=== PATIENT | male | born 2000 | race Hispanic/Latino ===

== ENCOUNTER 2019-12-02 03:36 | Emergency (ER) | payer SELFPAY ==
--- NOTE | 2019-12-02 04:11 | Emergency Department Report ---
ED Psych HPI - General Chief Complaint: Psych Stated Complaint: MH EVALUATION Time Seen by Provider: 12/02/19 04:09 Source: patient, police Mode of arrival: Ambulatory - History of Present Illness Initial Comments: Patient is a 19-year-old male that presents emergency room with complaints of needing some help to become an Trav. Patient states he is trying to be a devil and injured the same time. Patient states that he has been cutting his arms in order to prove his power. Patient denies suicidal homicidal ideations. Patient states he has having audio and visual hallucinations. MD Complaint: altered mental status, other -: Sudden Associated Psychiatric Symptoms: racing thoughts, auditory hallucinations, visual hallucinations, delusions History of same: Yes Quality: constant Improves With: none Worsens With: none Associated Symptoms: denies other symptoms Treatments Prior to Arrival: none - Related Data Home Medications Medication Instructions Recorded Confirmed Last Taken Dextroamphetamine/Amphetamine 150 mg PO DAILY 12/02/19 12/02/19 Unknown [Adderall] LORazepam [Ativan] 0.5 mg PO Q6H PRN 12/02/19 12/02/19 Unknown Allergies Allergy/AdvReac Type Severity Reaction Status Date / Time No Known Allergies Allergy Unverified 12/02/19 03:50 ED Review of Systems ROS: Stated complaint: MH EVALUATION Other details as noted in HPI Constitutional: denies: chills, fever Eyes: denies: eye pain, eye discharge, vision change ENT: denies: ear pain, throat pain Respiratory: denies: cough, shortness of breath, wheezing Cardiovascular: denies: chest pain, palpitations Endocrine: no symptoms reported Gastrointestinal: denies: abdominal pain, nausea, diarrhea Genitourinary: denies: urgency, dysuria Musculoskeletal: denies: back pain, joint swelling, arthralgia Skin: denies: rash, lesions Neurological: denies: headache, weakness, paresthesias Psychiatric: as per HPI, auditory hallucinations, visual hallucinations. de nies: anxiety, depression Hematological/Lymphatic: denies: easy bleeding, easy bruising ED Past Medical Hx - Past Medical History Previous Medical History?: Yes Hx Psychiatric Treatment: Yes (schizophrenia, depression, ADHD) - Surgical History Past Surgical History?: No - Family History Family history: no significant - Social History Smoking Status: Current Every Day Smoker Substance Use Type: Alcohol, Marijuana, Methamphetamines - Medications Home Medications: Home Medications Medication Instructions Recorded Confirmed Last Taken Type Dextroamphetamine/Amphetamine 150 mg PO DAILY 12/02/19 12/02/19 Unknown History [Adderall] LORazepam [Ativan] 0.5 mg PO Q6H PRN 12/02/19 12/02/19 Unknown History ED Physical Exam - General Limitations: Altered Mental Status, Other General appearance: alert, in no apparent distress - Head Head exam: Present: atraumatic, normocephalic - Eye Eye exam: Present: normal appearance - ENT ENT exam: Present: mucous membranes moist - Neck Neck exam: Present: normal inspection - Respiratory Respiratory exam: Present: normal lung sounds bilaterally. Absent: respiratory distress - Cardiovascular Cardiovascular Exam: Present: regular rate, normal rhythm. Absent: systolic murmur, diastolic murmur, rubs, gallop - GI/Abdominal GI/Abdominal exam: Present: soft, normal bowel sounds - Rectal Rectal exam: Present: deferred - Extremities Exam Extremities exam: Present: normal inspection - Back Exam Back exam: Present: normal inspection - Neurological Exam Neurological exam: Present: alert, oriented X3 - Expanded Psychiatric Exam Expanded Focused psych exam: Present: internal stimuli, delusional, flight of ideas, loose associations - Skin Skin exam: Present: warm, dry, intact, normal color. Absent: rash ED Course Vital Signs 12/02/19 03:42 Temperature 97.9 F Pulse Rate 89 Respiratory 18 Rate Blood Pressure 117/59 O2 Sat by Pulse 96 Oximetry - Reevaluation(s) Reevaluation #1: Patient is on ER hold. Patient's labs are unremarkable. Patient is medically cleared. Patient will remain in the ER as an ER hold and final disposition will come from our psych and mental health team. 12/02/19 05:24 ED Medical Decision Making - Lab Data Result diagrams: 12/02/19 03:59 12/02/19 03:59 - Medical Decision Making Patient is a 19-year-old male that presents emergency room with altered mental status and acute psychosis. Patient was placed on a ER hold. Patient had labs done. Patient is medically clear. Patient's final disposition will come from our psychiatric and mental health team. Patient labs are unremarkable. - Differential Diagnosis Mental clearance, acute psychosis, Critical care attestation.: If time is entered above; I have spent that time in minutes in the direct care of this critically ill patient, excluding procedure time. ED Disposition Clinical Impression: Acute psychosis Is pt being admited?: No Does the pt Need Aspirin: No Condition: Stable Referrals: VERNON JOHNSON MD [Primary Care Provider] - 2-3 Days Time of Disposition: 05:26
[2019-12-02 04:29] LABS: Bilirubin,Urine NEG (Negative); Blood,Urine NEG (Negative); Color,Urine Colorless (Yellow); Protein,Urine <15 mg/dL mg/dL (Negative); Urobilinogen,Urine < 2.0 mg/dL (<2.0); WBC,Urine < 1.0 /HPF (0.0-6.0)
[2019-12-02 04:35] LABS: Basophils # (Auto) 0.1 K/mm3 (0.0-0.1); Basophils % (Auto) 0.7 % (0.0-1.8); Eosinophils # (Auto) 0.1 K/mm3 (0.0-0.4); Eosinophils % (Auto) 0.7 % (0.0-4.3); Hematocrit 41.6 % (35.5-45.6); Hemoglobin 14.6 gm/dl (11.8-15.2); Lymphocytes # (Auto) 2.1 K/mm3 (1.2-5.4); Lymphocytes % (Auto) 24.8 % (13.4-35.0); Mean Corpuscular HGB Conc 35 % (32-34); Mean Corpuscular Volume 91 fl (84-94); Monocytes # (Auto) 0.8 K/mm3 (0.0-0.8); Monocytes % (Auto) 9.5 % (0.0-7.3); Platelet Count 175 K/mm3 (140-440); Red Blood Count 4.58 M/mm3 (3.65-5.03)
[2019-12-02 04:36] LABS: BUN/Creatinine Ratio 28; Blood Urea Nitrogen 25 mg/dL (9-20); Calcium 9.4 mg/dL (8.4-10.2); Hemolysis Index 11
[2019-12-02 04:40] LABS: Amphetamine Screen,Urine PRESUMPTIVE NEGATIVE; Benzodiazepines Screen,Urine PRESUMPTIVE NEGATIVE; Cannabinoid Screen,Urine PRESUMPTIVE NEGATIVE; Cocaine Screen,Urine PRESUMPTIVE NEGATIVE; Methadone Screen,Urine PRESUMPTIVE NEGATIVE; Opiate Screen,Urine PRESUMPTIVE NEGATIVE
[2019-12-02] MEDS ORDERED: LORazepam 1 MG TAB PO ONE (05:41)
[2019-12-03 08:44] VITALS: BP 134/81
--- NOTE | 2019-12-03 11:53 | Consultation ---
History of Present Illness - Reason for Consult Consult date: 12/03/19 Reason for consult: Psych eval Requesting physician: MARIA LUISA MCDOWELL III - Chief Complaint Chief complaint: I am ready to go back home - History of Present Psychiatric Illness The patient is a 19yo male with history of Schizophrenia and Substance use disorder. He presented to the ED psychotic. Psychiatry consulted to evaluate patient and recommend disposition. Vender's Note Pt is a 19 year old male who reported to this director of cath lab that he was brought to the ED, "because I wasn't getting anything done." Per Triage note, pt, "sold himself to the devil but God came and told him to change his name to Sanya, pt has self inflicted cuts on his left arm which he stated he was trying to prove he was more powerful than lucifer, and those cuts are a symbol that he is more powerful. States he sold his soul to lucifer and now he wants it back. At triage, pt stated he drank cough syrup and energy drinks." Pt reports that he has been diagnosed with Schizophrenia and is not compliant with his medications. Pt reports that he has been admitted to inpatient in the past, but pt is not able to identify which hospitals he has been to. Pt is displaying evidence of thought disorder/psychosis. Pt has poor eye contact and disheveled appearance. Pt is oriented to self and situation. "I'm trying to leave the hospital." Pt is unable to focus or concentrate; pt has poor memory. Pt has poor judgment and poor insight. Most of the pt's answers are not applicable to the questions that the director of cath lab is asking. Pt appears to be distracted and preoccupied. Pt remains delusional as he presented at triage/intake. Pt denies any suicidal thoughts, plans. Pt denies history of suicide attempts. Pt denies self harm but pt has self inflicted cuts on his arm. Pt denies any homicidal ideation. Pt denies history of homicide attempts. Pt does not seem to be forthcoming with his responses. Pt reports that he does not use substances. Pt reports that he lives he on the streets outside; pt reports that the last residence was a few weeks ago at a friends home. Pt reports that he is unable to live with his family "because we have problems." Pt's family lives in [place]. Pt reports that he is employeed, but then the pt is unable to identify where he works. Patient seen by me via Telemed this morning. He is alert, calm, fully oriented and able to engage in long meaningful conversation. He states that he is ready to go home. He feels that he is able to think clearly and relates his confusion to abusing substances. He denies SI/HI/AVH/Paranoia. PAST PSYCHIATRIC HISTORY: Diagnoses: Schizophrenia Family Psychiatric History None reported or documented REVIEW OF SYSTEMS Constitutional: Negative for weight loss ENT: Negative for stridor Respiratory: Negative for cough or hemoptysis All other systems reviewed and are negative MENTAL STATUS General Appearance and Behavior: age appropriate, good eye contact, cooperative with questioning and polite Cooperation: Cooperative Psychomotor Behavior: within normal limits Mood: OK Affect and affective range: Congruent with stated mood Thought Process: Fluent/Logical and Goal-directed Thought Content: Within reality Speech: Normal volume and Regular rate and rhythm Intellectual Functioning Average Suicidal Ideation: Denies SI Homicidal Ideation: Denies HI Impulse Control: intact Insight and Judgment: normal insight and judgment Memory: Normal Attention: Normal Orientation: alert and oriented Diagnoses: Substance induced Psychosis History of Schizophrenia. RECOMMENDATIONS MEDICATIONS: No adjustment recommended at this time PSYCHOTHERAPY: Supportive psychotherapy provided MEDICAL: Per primary team TOOL CHASER: DISPOSITION: Per primary team; no indication for acute inpatient psychiatric hospitalization at this time LEGAL STATUS:[id number] rescinded FOLLOW-UP: Will sign off Patient to complete Safety Plan before discharge Please contact with any questions and/or concerns. Medications and Allergies Allergies Allergy/AdvReac Type Severity Reaction Status Date / Time No Known Allergies Allergy Unverified 12/02/19 03:50 Home Medications Medication Instructions Recorded Confirmed Last Taken Type Dextroamphetamine/Amphetamine 150 mg PO DAILY 12/02/19 12/02/19 Unknown History [Adderall] LORazepam [Ativan] 0.5 mg PO Q6H PRN 12/02/19 12/02/19 Unknown History Mental Status Exam - Vital signs Last Vital Signs Temp 98.5 F 12/03/19 08:42 Pulse 96 H 12/03/19 08:42 Resp 18 12/03/19 08:42 BP 134/81 12/03/19 08:42 Pulse Ox 100 12/03/19 08:42 Results Result Diagrams: 12/02/19 03:59 12/03/19 09:26 All other labs normal.
== END 2019-12-03 12:33 | disposition home or self-care (01) ==
LOC: ED 03:36
DX: F23 Brief psychotic disorder (principal); F90.9 Attention-deficit hyperactivity disorder, unspecified type; F32.9 Major depressive disorder, single episode, unspecified; F17.200 Nicotine dependence, unspecified, uncomplicated; F12.10 Cannabis abuse, uncomplicated; F15.10 Other stimulant abuse, uncomplicated; Z79.899 Other long term (current) drug therapy
CPT/HCPCS: 36415; 80048; 80307; 80320; 81001; 84295; 85025; G0480